=== PATIENT | female | born 1980 | race Asian ===

== ENCOUNTER 2018-03-04 11:40 | Emergency (ER) | payer MEDICAID ==
[~2018-03-04] VITALS: Ht 571.8 cm; Wt 54.0 kg
[2018-03-04 13:08] VITALS: BP 118/70
== END 2018-03-04 13:10 | disposition home or self-care (01) ==
LOC: ER 11:41
DX: S93.492A Sprain of other ligament of left ankle, initial encounter (principal); X50.1XXA Overexertion from prolonged static or awkward postures, initial encounter; Y93.89 Activity, other specified; Y92.89 Other specified places as the place of occurrence of the external cause; Y99.8 Other external cause status
CPT/HCPCS: 73610; 99284; A6449